=== PATIENT | male | born 1950 | race Caucasian/White ===

== ENCOUNTER 2023-04-18 13:57 | Outpatient (OUT) | payer MEDICARE, SELFPAY ==
--- NOTE | 2023-04-18 14:26 | XR_ITS ---
The [address] [address] Patient Name: NOEMI PINEDA MRN: [id number] date: 1950 Sex: M Assigned Patient Location: Current Patient Location: Accession/Order Number: [id number] Exam Date: 04/18/2023 14:26 Report Date: 04/18/2023 14:54 At the request of: NALINI BAUTISTA Procedure: XR tibia fibula RT 2V EXAM: XR tibia fibula RT 2V HISTORY: RIGHT LOWER LEG PAIN COMPARISON: None. TECHNIQUE: AP and lateral views of the tibia and fibula were obtained. FINDINGS: There is no evidence of an acute fracture or dislocation. Mild degenerative changes are seen about the knee. The ankle joints are intact. No significant focal osseous abnormality is identified. Soft tissue swelling with some irregular soft tissue suggesting a laceration is seen anterior to the mid and proximal tibia. Vascular surgical clips are seen medial to the proximal tibia. IMPRESSION: No acute fracture or dislocation. Some degenerative changes are seen about the knee. No significant osseous abnormality is otherwise identified. Soft tissue swelling and irregularity is present, possibly with a laceration. No radiopaque foreign body or abnormal calcification is present in the soft tissue swelling. Electronically authenticated by: ISRAEL MARIEE Date: 04/18/2023 14:54
== END 2023-04-18 13:58 | disposition home or self-care (01) ==
PROVIDERS: PCP Family Medicine; Visit Provider Physician Assistant
DX: L97.912 Non-pressure chronic ulcer of unspecified part of right lower leg with fat layer exposed (principal); M79.661 Pain in right lower leg
CPT/HCPCS: 11043; 73590; A6213; G0463

== ENCOUNTER 2023-05-03 12:13 | Outpatient (OUT) | payer MEDICARE, SELFPAY ==
--- NOTE | 2023-05-03 13:38 | CA_ITS ---
[facility] Test Date: 2023-05-03 Pat Name: Bobby Babcock Department: Room: - Gender: Male Creative Designer: : 1950 Requested By: [id number] Order Number: [id number] Reading MD: TORREY ORDONEZ Interpretive Statements Biphasic doppler waveforms PVR waveforms with normal upstroke, amplitude and dicrotic notch Right: - significant pressure gradient between the calf and DP cuff - abnormal JAM, normal TBI Left: - significant pressure gradient between the calf and the DP cuff - normal JAM, normal TBI Impression: - elevated indices (B/L calf, right PT) consistent with calcified, noncompressible arterial santana, which may underestimate the degree of arterial disease present - normal arterial evaluation of the lower extremity without hemodynamic impairment of the B/L lower extremities at rest (right JAM 1.52, left 1.23) - B/L TBI, which are not influenced by arterial wall calcification, are normal in the B/L lower extremities, indicating normal arterial perfusion. Electronically Signed On 05-04-2023 7:12:49 EDT by TORREY ORDONEZ
== END 2023-05-03 12:14 | disposition home or self-care (01) ==
PROVIDERS: PCP Family Medicine; Visit Provider Physician Assistant
DX: I87.2 Venous insufficiency (chronic) (peripheral) (principal); R09.89 Other specified symptoms and signs involving the circulatory and respiratory systems
CPT/HCPCS: 93923

== ENCOUNTER 2023-05-09 12:59 | Outpatient (OUT) | payer MEDICARE, SELFPAY | END 2023-05-09 13:00 | disposition home or self-care (01) | LOC: WC 12:59 | PROVIDERS: PCP Family Medicine; Visit Provider Physician Assistant | DX: L97.912 Non-pressure chronic ulcer of unspecified part of right lower leg with fat layer exposed (principal) | CPT/HCPCS: G0463 ==

== ENCOUNTER 2023-05-18 14:20 | Outpatient (RCR) | payer MEDICARE, SELFPAY | END 2023-06-18 11:20 | disposition home or self-care (01) | LOC: PT 14:20 | PROVIDERS: PCP Family Medicine | DX: M17.12 Unilateral primary osteoarthritis, left knee (principal) | CPT/HCPCS: 97110; 97112; 97162; 97530 ==

== ENCOUNTER 2023-06-13 13:15 | Outpatient (OUT) | payer MEDICARE, SELFPAY | END 2023-06-13 13:16 | disposition home or self-care (01) | LOC: WC 13:15 | PROVIDERS: PCP Family Medicine; Visit Provider Physician Assistant | DX: L97.912 Non-pressure chronic ulcer of unspecified part of right lower leg with fat layer exposed (principal) | CPT/HCPCS: G0463 ==

== ENCOUNTER 2023-07-19 07:29 | Outpatient (RCR) | payer MEDICARE, SELFPAY | END 2023-08-10 16:46 | disposition home or self-care (01) | LOC: PT 07:29 | PROVIDERS: PCP Family Medicine | DX: Z98.890 Other specified postprocedural states (principal) | CPT/HCPCS: 97110; 97140; 97161 ==